=== PATIENT | female | born 2000 | race Caucasian/White ===

== ENCOUNTER 2019-03-13 16:03 | Emergency (ER) | payer MEDICAID ==
[~2019-03-13] VITALS: Ht 162.6 cm; Wt 57.3 kg
[2019-03-13 16:11] VITALS: BP 142/89
--- NOTE | 2019-03-13 16:13 | NUR ---
Patient ambulated to bed 6. RN evaluating patient at bedside.
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
--- NOTE | 2019-03-13 17:02 | NUR ---
MANDY Faulkner evaluating patient at bedside.
[2019-03-13 17:40] VITALS: BP 138/8
--- NOTE | 2019-03-13 17:40 | NUR ---
Patient discharged with v/s stable. Written and verbal after care instructions given and explained. Patient alert, oriented and verbalized understanding of instructions. Ambulatory with steady gait. All questions addressed prior to discharge. ID band removed. Patient advised to follow up with PMD. Rx of VITAMINS given. Patient educated on indication of medication including possible reaction and side effects. Opportunity to ask questions provided and answered.
== END 2019-03-13 17:40 | disposition home or self-care (01) ==
LOC: MED 16:03
DX: O21.8 Other vomiting complicating pregnancy (principal); O92.29 Other disorders of breast associated with pregnancy and the puerperium

== ENCOUNTER 2019-10-23 11:42 | Inpatient (IN) | payer MEDICAID ==
[~2019-10-23] VITALS: Ht 165.1 cm; Wt 67.6 kg
[2019-10-23] MEDS ORDERED: LACTATED RINGERS 1,000 ML IV SCH (12:21)
[2019-10-23] MEDS ORDERED: PNV11TAB3 PO (12:21)
[2019-10-23] MEDS ORDERED: OXYTOCIN 20 UNITS in LACTATED RINGERS 1,000 ML IV SCH (12:25)
[2019-10-23] MEDS ORDERED: PROMETHAZINE 25 MG/ML VIAL IVP PRN (12:25)
[2019-10-23] MEDS ORDERED: METHYLERGONOVINE 0.2 MG/ML AMP IM PRN ×2 (12:25→22:00)
[2019-10-23] MEDS ORDERED: CARBOPROST 250 MCG/ML AMP IM PRN (12:25)
[2019-10-23 13:18] VITALS: BP 121/70
[2019-10-23 13:28] LABS: APPEARANCE,URINE CLEAR (CLEAR); BILIRUBIN,URINE NEGATIVE (NEGATIVE); BLOOD, URINE NEGATIVE (NEGATIVE); COLOR,URINE YELLOW (YELLOW); LEUKOCYTE ESTERASE ,URINE 1+ (NEGATIVE); NITRITE, URINE NEGATIVE (NEGATIVE); PH,URINE 7.5 (5.0-9.0); UGLUCOSE NEGATIVE (NEGATIVE)
[2019-10-23 13:32] LABS: RBC,URINE 0-5 /HPF (0-5)
[2019-10-23 13:33] LABS: BASOPHILS % (AUTO) 0.3 % (0.0-2.0); EOSINOPHILS % (AUTO) 0.4 % (0.0-4.0); HEMATOCRIT 30.8 % (36-48); HEMOGLOBIN 10.2 g/dL (12.0-16.0); LYMPHOCYTES # (AUTO) 1.5 K/uL (2.5-16.5); LYMPHOCYTES % (AUTO) 18.6 % (20.5-51.1); MEAN CORPUSCULAR HEMOGLOBIN 30 pg (27-31); MEAN CORPUSCULAR HGB CONC 33 g/dL (33-37); MEAN CORPUSCULAR VOLUME 90.2 fL (80-94); MONOCYTES # (AUTO) 0.6 K/uL (0.8-1.0); MONOCYTES % (AUTO) 7.5 % (1.7-9.3); NEUTROPHILS % (AUTO) 73.2 % (42.2-75.2); PLATELET COUNT (AUTO) 186 K/uL (140-450); RED BLOOD CELL COUNT(AUTO) 3.41 MIL/uL (4.20-5.40); RED CELL DISTRIBUTION WIDTH 13.3 % (11.6-13.7); WHITE BLOOD COUNT (AUTO) 8.2 K/uL (4.5-11.0)
[2019-10-23] MEDS ORDERED: ROPIVACAINE 0.2%/NS PREMIX 200 ML EPI ONE (16:32)
[2019-10-23] MEDS ORDERED: ROPIVACAINE 0.2%/NS PREMIX 200 ML EPI SCH (17:30)
[2019-10-23] MEDS ORDERED: TEMAZEPAM 15 MG CAP PO PRN (22:00)
[2019-10-23] MEDS ORDERED: METHYLERGONOVINE 0.2 MG TAB PO PRN (22:00)
[2019-10-23] MEDS ORDERED: HYDROcodone/APAP 5/325 MG 1 TAB TAB PO PRN (22:00)
[2019-10-23] MEDS ORDERED: oxyCODONE/APAP 5/325 MG 1 TAB TAB PO PRN (22:00)
[2019-10-23] MEDS ORDERED: SODIUM PHOSPHATE 118 ML ENEM RC PRN (22:00)
[2019-10-23] MEDS ORDERED: BENZOCAINE/MENTHOL 20%-0.5% 60 GM CAN TP PRN (22:00)
[2019-10-23] MEDS ORDERED: OXYTOCIN 10 UNITS/ML VIAL IM PRN (22:00)
[2019-10-24] MEDS: IBUPROFEN 800 MG TAB PO PRN ×3 (03:29→18:18)
[2019-10-24 06:16] LABS: HEMATOCRIT 29.6 % (36-48); HEMOGLOBIN 9.9 g/dL (12.0-16.0)
--- NOTE | 2019-10-24 06:59 | NUR ---
PATIENT HAS BEEN SCREENED AND CATEGORIZED LOW NUTRITION RISK. PATIENT WILL BE SEEN WITHIN 7 DAYS OF ADMISSION. 10/30/19 ALEC CEDILLO MBA, RD
[2019-10-24] MEDS ORDERED: DOCUSATE SOD/SENNA 50/8.6 MG 1 TAB PO SCH (21:00)
[2019-10-25] MEDS ORDERED: FERR-149 PO (13:33)
[2019-10-25] MEDS ORDERED: IBUP-2213 PO (13:37)
[2019-10-25] MEDS: IBUPROFEN 800 MG TAB PO PRN (15:30)
== END 2019-10-25 18:00 | disposition home or self-care (01) | DRG 560 ==
LOC: MFCC 11:42
PROVIDERS: ADMIT Obstetrics & Gynecology; ATTEND Obstetrics & Gynecology
PROC: 10E0XZZ Delivery of Products of Conception, External Approach (ICD-10-PCS; principal; 2019-10-23)
PROC: 3E0R3BZ Introduction of Anesthetic Agent into Spinal Canal, Percutaneous Approach (ICD-10-PCS; 2019-10-23)
PROC: 00HU33Z Insertion of Infusion Device into Spinal Canal, Percutaneous Approach (ICD-10-PCS; 2019-10-23)
PROC: 3E033VJ Introduction of Other Hormone into Peripheral Vein, Percutaneous Approach (ICD-10-PCS; 2019-10-23)
DX: O60.23X0 Term delivery with preterm labor, third trimester, not applicable or unspecified (principal); Z3A.37 37 weeks gestation of pregnancy; Z37.0 Single live birth
CPT/HCPCS: 36415; 51702; 59409; 81001; 85018; 85025; 86592; 86886; 86900; 86901; 87086; 87653-90; J2795; J7120

== ENCOUNTER 2020-02-07 01:57 | Emergency (ER) | payer MEDICAID ==
[~2020-02-07] VITALS: Ht 165.1 cm; Wt 57.2 kg
[~2020-02-07 01:57] MED LIST: FERR-149 PO; IBUP-2213 PO; PNV11TAB3 PO
[2020-02-07 02:03] VITALS: BP 116/89
[2020-02-07 02:11] VITALS: BP 116/89
[2020-02-07 02:35] LABS: BASOPHILS # (AUTO) 0.1 K/uL (0.00-0.22); BASOPHILS % (AUTO) 0.8 % (0.0-2.0); EOSINOPHILS # (AUTO) 0.1 K/uL (0-0.4); HEMATOCRIT 41.8 % (36-48); HEMOGLOBIN 14.1 g/dL (12.0-16.0); LYMPHOCYTES # (AUTO) 2.4 K/uL (2.5-16.5); LYMPHOCYTES % (AUTO) 40.5 % (20.5-51.1); MEAN CORPUSCULAR HEMOGLOBIN 30 pg (27-31); MEAN CORPUSCULAR HGB CONC 34 g/dL (33-37); MEAN CORPUSCULAR VOLUME 88.9 fL (80-94); MONOCYTES # (AUTO) 0.4 K/uL (0.8-1.0); NEUTROPHILS # (AUTO) 3.1 K/uL (1.8-7.7); NEUTROPHILS % (AUTO) 51.7 % (42.2-75.2); PLATELET COUNT (AUTO) 218 K/uL (140-450); RED BLOOD CELL COUNT(AUTO) 4.71 MIL/uL (4.20-5.40); RED CELL DISTRIBUTION WIDTH 12.9 % (11.6-13.7)
[2020-02-07 02:52] LABS: ALBUMIN 4.7 g/dL (3.4-5.0); ANION GAP 18.2 (8-16); CARBON DIOXIDE 22.8 mmol/L (21-32)
== END 2020-02-07 03:28 | disposition home or self-care (01) ==
LOC: MED 01:57
DX: O26.851 Spotting complicating pregnancy, first trimester (principal); Z91.018 Allergy to other foods; Z79.899 Other long term (current) drug therapy
CPT/HCPCS: 36415; 80053; 81002; 81025; 84702; 85025; 86900; 86901; 99283

== ENCOUNTER 2021-07-28 16:13 | Emergency (ER) | payer OTHER, MEDICAID ==
[~2021-07-28] VITALS: Ht 160 cm; Wt 51.7 kg
[2021-07-28 16:36] VITALS: BP 131/78
--- NOTE | 2021-07-28 18:31 | NUR ---
PT AMBULATED TO ER BED 4
[2021-07-28] MEDS ORDERED: PROCHLORPERAZINE 5 MG TAB PO ONE (18:55)
--- NOTE | 2021-07-28 19:04 | NUR ---
XR AT PT BEDSIDE
--- NOTE | 2021-07-28 19:28 | NUR ---
Pt report given to LUZ FLORES. Transfer of care at this time.
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
[2021-07-28] MEDS ORDERED: PROCHLORPERAZINE 5 MG TAB ONE (20:25)
--- NOTE | 2021-07-28 20:30 | NUR ---
medicated as per ermds order, tolerated well
[2021-07-28] MEDS ORDERED: KETOROLAC 30 MG/ML VIAL IM ONE (21:20)
[2021-07-28] MEDS ORDERED: METH-1681 PO (22:23)
[2021-07-28] MEDS ORDERED: IBUP-2213 PO (22:23)
--- NOTE | 2021-07-28 23:01 | NUR ---
CLEARED FOR DC WITH ED PROVIDER, VS STABLE ON DC, DC INSTRUCTIONS REINFORCED.
[2021-07-28 23:02] VITALS: BP 102/55
== END 2021-07-28 23:02 | disposition home or self-care (01) ==
LOC: MED 16:13
DX: S39.012A Strain of muscle, fascia and tendon of lower back, initial encounter (principal); S90.01XA Contusion of right ankle, initial encounter; S20.219A Contusion of unspecified front wall of thorax, initial encounter; S09.90XA Unspecified injury of head, initial encounter; Z79.899 Other long term (current) drug therapy; Z91.018 Allergy to other foods; V89.2XXA Person injured in unspecified motor-vehicle accident, traffic, initial encounter; Y93.89 Activity, other specified; Y92.89 Other specified places as the place of occurrence of the external cause; Y99.8 Other external cause status
CPT/HCPCS: 70450; 71045; 73610; 81025; 96372; 99284; J1885; Q0092; Q0163; Q0164

== ENCOUNTER 2022-01-05 21:24 | Emergency (ER) | payer MEDICAID ==
[~2022-01-05] VITALS: Ht 165.1 cm; Wt 57.6 kg
[~2022-01-05 21:24] MED LIST changes: +METH-1681 PO
[2022-01-05 21:31] VITALS: BP 123/62
--- NOTE | 2022-01-05 22:31 | NUR ---
PT TAKEN TO BED 6
--- NOTE | 2022-01-05 22:31 | NUR ---
Dimitrios nair in [facility] - 01/05/22 at 2232 by [email or web address] Patient ambulated to bed 6.
--- NOTE | 2022-01-05 22:56 | NUR ---
21/F BIB SELF FROM HOME C/C THROAT PAIN S/P INJURY XTODAY. PER PATIENT PAIN IS 10/10 "FEELS LIKE TIGHTNESS AND PRESSURE". PER PATIENT THE CHAIR BROKE AND LANDED ON THROAT, SINCE THEN PATIENT REPORTS DIFFICULTY SWALLOWING AND EATING "FEELS LIKE MY THROAT IS GETTING TIGHTER". PATIENT IS AAOX4 AND AMBULATORY. DENIES PMHX, RX NKA
--- NOTE | 2022-01-06 00:02 | NUR ---
PATIETN STATED THAT SHE WAS ALLERGIC TO IODINE/CONTRAST DYE. MADE AWARE.
--- NOTE | 2022-01-06 00:07 | NUR ---
PT TAKEN TO CT
--- NOTE | 2022-01-06 00:21 | NUR ---
patient returned from ct
--- NOTE | 2022-01-06 04:15 | NUR ---
IV removed, catheter intact and site benign. Applied folded 4x4 gauze and tape to stop bleeding.
--- NOTE | 2022-01-06 05:15 | NUR ---
Dr. Mckinney examining patient.
[2022-01-06 05:19] VITALS: BP 118/69
--- NOTE | 2022-01-06 05:19 | NUR ---
Chart checked and completed.
--- NOTE | 2022-01-06 05:19 | NUR ---
Patient discharged with v/s stable. Written and verbal after care instructions given and explained. Patient verbalized understanding. Ambulatory with steady gait. All questions addressed prior to discharge. Advised to follow up with PMD.
== END 2022-01-06 05:19 | disposition home or self-care (01) ==
LOC: MED 21:24
DX: S10.93XA Contusion of unspecified part of neck, initial encounter (principal); Z79.899 Other long term (current) drug therapy; Z79.1 Long term (current) use of non-steroidal anti-inflammatories (NSAID); Z91.02 Food additives allergy status; Z91.041 Radiographic dye allergy status; W18.39XA Other fall on same level, initial encounter; Y92.89 Other specified places as the place of occurrence of the external cause; Y93.89 Activity, other specified; Y99.8 Other external cause status
CPT/HCPCS: 70490; 99284